=== PATIENT | male | born 1990 | race Two or more races ===

== ENCOUNTER 2016-03-28 01:38 | Emergency (ER) | payer SELFPAY ==
[~2016-03-28] VITALS: Ht 182.9 cm; Wt 79.4 kg
[2016-03-28] MEDS ORDERED: NKM (01:58)
[2016-03-28] MEDS ORDERED: Lidocaine 1% Plain 30 ml INJ ONE ×2 (02:07→02:15)
--- NOTE | 2016-03-28 02:22 | Emergency Room Report ---
History of Present Illness General Chief Complaint: Laceration Source: Patient Present Illness HPI Patient presents with complaints of laceration to the right hand Patient reports that he was asleep on a mattress when he fell off striking the right arm onto a glass area Glass did break Patient had mainly laceration to the forearm However those 2 areas on the palmar aspect And on the dorsal middle finger on the same hand which also had evidence of laceration Denies any elbow pain denies any loss of consciousness denies any chest pain or shortness of breath Pain to the lacerated area as 06/26 Allergies: Coded Allergies: No Known Allergies (Unverified , 03/28/16) Patient History Past Medical History: see triage record Pertinent Family History: none Reviewed Nursing Documentation: PMH: Agreed, PSxH: Agreed Nursing Documentation-PMH Past Medical History: No Stated History Review of Systems All Other Systems: negative except mentioned in HPI Physical Exam Vital Signs Date Time Temp Pulse Resp B/P Pulse Ox O2 Delivery O2 Flow Rate FiO2 03/28/16 01:52 98.4 82 16 145/102 99 Room Air Sp02 EP Interpretation: reviewed, normal General Appearance: no apparent distress Head: normocephalic, atraumatic Eyes: bilateral eye EOMI, bilateral eye PERRL ENT: hearing grossly normal, normal pharynx, TMs + canals normal, uvula midline Neck: full range of motion, supple, no meningismus, no bony tend Cardiovascular #1: normal peripheral pulses Musculoskeletal: normal inspection - Good flexion extension at the wrist, patient able to make good thumbs up and has appropriate mobility of the fingers, Neurologic: oriented x3, responsive, gold layer III-XII nml as tested, motor strength/ tone normal, sensory intact Psychiatric: mood/affect normal Skin: other - Approximately 3 cm semicircular laceration distal dorsal right forearm, approximately half centimeter superficial laceration thenar eminence on the right hand, approximately 1 cm laceration dorsal middle finger, scabbed over Lymphatic: normal inspection, no adenopathy Procedures Laceration/Wound Repair Progress Laceration #1 Semicircular laceration distal dorsal aspect of the right forearm approximately 3 cm Area was cleansed and prepped Total of 5 mL 1% lidocaine was injected subcutaneously for local sedation Afterwards 9 4.0 monofilament sutures were placed in an interrupted fashion with good wound approximation Copious amounts of high pressure saline washout was performed prior to this Laceration #2 Linear somewhat superficial laceration palmar aspect of the midforearm total length 1/2 cm Total of 3 mL 1% lidocaine were used for local sedation patient tolerated the procedure well 2 5.0 monofilament sutures were placed in an interrupted fashion with good approximation Patient tolerated the procedure well Both areas were provided with antibiotic ointment an appropriate dressing Laceration #3 One centimeter skin avulsion thenar eminence of right hand Area had Steri-Strip applied over the top With good skin approximation and coverage Patient tolerated the procedure well Medical Decision Making Diagnostic Impression: Primary Impression: Laceration ER Course Patient had laceration repair as noted above Tolerated the procedure well Given the puncture-type wound He was placed on antibiotics as well his tetanus shot is up-to-date and patient discharged for close outpatient followup Other X-Ray Diagnostic Results Other X-Ray Diagnostic Results : EP Interpretation: Yes Findings: no fractures, no dislocation, no soft tissue swelling Number of Views: 3 - Right forearm including right hand Last Vital Signs Date Time Temp Pulse Resp B/P Pulse Ox O2 Delivery O2 Flow Rate FiO2 03/28/16 01:52 98.4 82 16 145/102 99 Room Air Status: improved Disposition: HOME, SELF-CARE Condition: Improved Scripts Cephalexin* (KEFLEX*) 500 Mg Capsule 500 MG ORAL Q6H, #28 CAP 0 Refills Prov: DIDIER NÚÑEZ D.O. 03/28/16 Acetaminophen With Codeine (T#3) (TYLENOL #3 TAB*) Y Tab 1 TAB ORAL Q8H Y for For Pain, #15 TAB Prov: DIDIER NÚÑEZ D.O. 03/28/16 Ibuprofen* (MOTRIN*) 600 Mg Tablet 600 MG ORAL Q8H Y for For Pain, #30 TAB 0 Refills Prov: DIDIER NÚÑEZ D.O. 03/28/16 Additional Instructions: Patient is provided with the discharge instructions notified to follow up with primary doctor in the next 2-3 days otherwise return to the er with any worsening symptoms. DIDIER NÚÑEZ D.O. Mar 28, 2016 02:21
[2016-03-28] MEDS ORDERED: Bacitracin Oint UD TOPIC ONE (03:31)
[2016-03-28 03:34] VITALS: BP 132/82
[2016-03-28] MEDS ORDERED: IBUPROFEN600 MG ORAL (03:34)
[2016-03-28] MEDS ORDERED: ACETAMINOPHEN-1 EAC1 ORAL (03:34)
[2016-03-28] MEDS ORDERED: KEFLEX500 MG ORAL (03:42)
[2016-03-28 03:49] VITALS: BP 132/82
--- NOTE | 2016-03-28 11:19 | Diagnostic Imaging Report ---
Indications: Right forearm injury, pain Technique: 2 views right forearm. Findings: Comparison: None The soft tissues over the distal radial diaphysis are swollen and irregular with gas-filled defect and overlying bandage. No fracture, dislocation, joint space widening , foreign body, or other acute changes are identified. IMPRESSION: Distal right forearm soft tissue laceration. No fracture or foreign body.
--- NOTE | 2016-04-04 14:57 | Diagnostic Imaging Report ---
Indications: Right hand injury, pain Technique: AP view right hand. Findings: Comparison: None No fracture, dislocation, joint space widening , surrounding soft tissue swelling/foreign body/other abnormality, or other acute changes are identified. IMPRESSION: No evidence of acute injury. Examination limited, however, due to lack of additional views and subtle abnormalities may be missed. Examination therefore nondiagnostic.
== END 2016-03-28 03:50 | disposition home or self-care (01) ==
LOC: EMR 02:08
DX: S61.411A Laceration without foreign body of right hand, initial encounter (principal); S51.811A Laceration without foreign body of right forearm, initial encounter; W25.XXXA Contact with sharp glass, initial encounter; Y92.9 Unspecified place or not applicable; Y99.8 Other external cause status
CPT/HCPCS: 12002; 73090; 73120; 99284; J2001

== ENCOUNTER 2016-04-09 23:49 | Emergency (ER) | payer SELFPAY ==
[~2016-04-09] VITALS: Ht 182.9 cm; Wt 79.4 kg
[~2016-04-09 23:49] MED LIST: ACETAMINOPHEN-1 EAC1 ORAL; IBUPROFEN600 MG ORAL; KEFLEX500 MG ORAL; NKM
[2016-04-10 00:21] VITALS: BP 118/81
--- NOTE | 2016-04-10 00:45 | Emergency Room Report ---
History of Present Illness General Chief Complaint: Wound Recheck/Suture Removal Source: Patient Present Illness HPI 25 YO M here for suture removal s/p lac and primary repair on 03/28 to right forearm. States healing well, some sutures fell out on their own. Denies fever/ chills, discharge from wound. Feels well otherwise. Allergies: Coded Allergies: No Known Allergies (Unverified , 03/28/16) Patient History Past Medical History: none Past Surgical History: none Pertinent Family History: none Social History: Denies: alcohol use, drug use, smoking Reviewed Nursing Documentation: PMH: Agreed, PSxH: Agreed Nursing Documentation-PMH Past Medical History: No Stated History Review of Systems All Other Systems: negative except mentioned in HPI Physical Exam Vital Signs Date Time Temp Pulse Resp B/P Pulse Ox O2 Delivery O2 Flow Rate FiO2 04/10/16 00:07 98.2 81 16 116/74 96 Room Air Skin: other - 2 lacerations to right forearm. Larger one has [address]; well healing, new granulation tissue. No dehiscence. Some sutures are missing. Smaller lac has [address], also well into healing process. No crepitus, ttp, or discharge from area. No erythema at sites. Medical Decision Making Diagnostic Impression: Primary Impression: Encounter for removal of sutures ER Course Sutures removed. VSS. Afebrile. No sign of infection No other acute issue in ED DC home Last Vital Signs Date Time Temp Pulse Resp B/P Pulse Ox O2 Delivery O2 Flow Rate FiO2 04/10/16 00:21 98.0 81 16 118/81 99 Room Air Status: improved Disposition: HOME, SELF-CARE Condition: Improved Patient Instructions: Suture Removal, Care After TEETEE MARK M.D. Apr 10, 2016 00:45
[2016-04-10 00:46] VITALS: BP_SYST 1; BP_SYST 118; BP_DIAS 1; BP_DIAS 81
== END 2016-04-10 00:45 | disposition home or self-care (01) ==
LOC: EMR 04-10 00:10
DX: S51.811D Laceration without foreign body of right forearm, subsequent encounter (principal); Z48.02 Encounter for removal of sutures
CPT/HCPCS: 99282